=== PATIENT | male | born 1960 | race Caucasian/White ===

== ENCOUNTER 2017-03-31 21:06 | Emergency (ER) | payer OTHER ==
[~2017-03-31] VITALS: Ht 177.8 cm; Wt 89.4 kg
[2017-03-31 21:50] VITALS: BP 127/83
[2017-03-31] MEDS ORDERED: LIDOCAINE 1% / SOD BICARB 8.4% 20 ML VIAL. IJ ONE (22:15)
[2017-03-31] MEDS ORDERED: DOXY100C2 PO (23:10)
[2017-03-31] MEDS ORDERED: HYDR-971 PO (23:10)
--- NOTE | 2017-03-31 23:10 | PHYS DOC ---
Past Medical History Past Medical History: High Cholesterol, Other Additional Past Medical Histor: BPH Past Surgical History: No Surgical History Alcohol Use: None Drug Use: None Adult General Chief Complaint Chief Complaint: LACERATION/AVULSION [facility] HPI Patient is a 56 year old male presents to the emergency department stating that he was at work when he got his arm caught on one of the machines. He has an 15 cm laceration to his left forearm. Patient states his tetanus immunization is up-to-date. He has full range of motion of the wrist and the fingers. 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 No bleeding is currently noted from the site. Patient is [id number]. Review of Systems Review of Systems Constitutional: Denies fever or chills [] Eyes: Denies change in visual acuity, redness, or eye pain [] HENT: Denies nasal congestion or sore throat [] Respiratory: Denies cough or shortness of breath [] Cardiovascular: No additional information not addressed in HPI [] GI: Denies abdominal pain, nausea, vomiting, bloody stools or diarrhea [] : Denies dysuria or hematuria [] Musculoskeletal: Denies back pain or joint pain [] Integument: Denies rash or skin lesions laceration left forearm Neurologic: Denies headache, focal weakness or sensory changes [] Endocrine: Denies polyuria or polydipsia [] Current Medications Current Medications Current Medications Medications (Trade) Dose Ordered Sig/[facility] Start Time Stop Time Status Last Admin Dose Admin Lidocaine/Sodium Bicarbonate (Buffered Lidocaine 1%) 20 ml 1X ONCE 03/31/17 22:15 03/31/17 22:16 DC 03/31/17 22:40 20 ML Allergies Allergies Allergies Coded Allergies Type Severity Reaction Last Updated Verified No Known Drug Allergies 03/31/17 No Physical Exam Physical Exam Constitutional: Well developed, well nourished, no acute distress, non-toxic appearance. [] HENT: Normocephalic, atraumatic, bilateral external ears normal, oropharynx moist, no oral exudates, nose normal. [] Eyes: PERRLA, EOMI, conjunctiva normal, no discharge. [] Neck: Normal range of motion, no tenderness, supple, no stridor. [] Cardiovascular:Heart rate regular rhythm Lungs & Thorax: No respiratory distress noted Skin: Warm, dry, no erythema, no rash. 15 cm laceration noted to the left forearm. Tendon was identified with no rupture noted. Extremities: No tenderness, no cyanosis, no clubbing, ROM intact, no edema. Patient with equal strength noted bilaterally. 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 Patient with full range of motion of the left arm. Neurologic: Alert and oriented X 3, normal motor function, normal sensory function, no focal deficits noted. [] Psychologic: Affect normal, judgement normal, mood normal. [] Current Patient Data Vital Signs Vital Signs Date Time Temp Pulse Resp B/P (MAP) Pulse Ox O2 Delivery O2 Flow Rate FiO2 03/31/17 21:50 98.0 66 18 95 Room Air 98.0 EKG EKG [] Radiology/Procedures Radiology/Procedures [] Course & Med Decision Making Course & Med Decision Making Pertinent Labs and Imaging studies reviewed. (See chart for details) X-rays were negative for any bony abnormalities. Patient was provided with discharge instructions, treatment regimens and follow-up recommendations. Signs and symptoms to return back to emergency department has been provided. Patient was also encouraged to follow-up with work comp doctor. He was placed on antibiotics as well as pain medication upon discharge. Patient agrees with discharge instructions treatment regimens and follow-up recommendations. All concerns and questions have been answered at the patient's bedside. [] Dragon Disclaimer Dragon Disclaimer This electronic medical record was generated, in whole or in part, using a voice recognition dictation system. Departure Departure Impression: Primary Impression: Laceration Disposition: 01 HOME, SELF-CARE Condition: STABLE Referrals: UNKNOWN PCP NAME (PCP) Patient Instructions: Laceration Care, Adult, [id number] Additional Instructions: Activity as tolerated Ibuprofen for pain and discomfort [place] for severe pain do not take if you need to be alert and oriented Medication as prescribed Ice packs on 20 minutes and off 20 minutes several times a day Elevation as much as possible Keep the area clean and dry Clean the site with soap and water twice a day and apply antibiotic ointment to the area Watch for signs and symptoms of infection: redness, warmth, tenderness or any drainage or discharge noted from the site if you develop this followup immediately Otherwise followup with work comp in 01-11 for suture removal Scripts Doxycycline Hyclate (DOXYCYCLINE HYCLATE) 100 Mg Capsule 1 CAP PO BID, #20 CAP Prov: GABO SARMIENTO CHART SNATCHER 03/31/17 Hydrocodone/Apap 5-325 (NORCO 5-325 TABLET) 1 Each Tablet 1 TAB PO PRN Q6HRS Y for PAIN, #20 TAB 0 Refills Prov: GABO SARMIENTO APRN 03/31/17 Laceration/Wound Repair Laceration/Wound Repair : Wound Location: upper extremity Wound's Depth, Shape: into muscle Wound Length (cm): 15 Wound Explored: no foreign body removed Irrigated w/ Saline (ccs): 200 Betadine Prep?: Yes Anesthesia: 1% Lidocaine Volume Anesthetic (ccs): 15 Wound Debrided: minimal Wound Repaired With: sutures Suture Size/Type: 3:0, nylon Number of Sutures: 4 Layer Closure?: Yes Deep Layer Suture Size/Type: 3:0, dexon Number Deep Layer Sutures: 4 Progress Site was irrigated with 200 mL of normal saline. Lidocaine 1% buffered was injected into the area with approximately 50 mL. Inner layer was closed with 3- 0 Vicryl with 4 interrupted sutures placed. Outer area was stapled with 18 parker, 4 sutures that were interrupted of 3-0 Vicryl. Patient tolerated the procedure well. GABO SARMIENTO APRN Mar 31, 2017 23:10
--- NOTE | 2017-04-01 07:24 | RAD ---
EXAM: Left forearm 2 views. HISTORY: Laceration. COMPARISON: None. FINDINGS: Skin parker are seen along a soft tissue injury along the medial and dorsal aspect of the proximal forearm. There is a radiopaque foreign body along the proximal aspect of injury that measures 2.5 mL. A few additional tiny densities are scattered elsewhere in the laceration. No fractures are identified. The joint spaces and alignment of the wrist and elbow appear maintained. IMPRESSION: 1. Radiopaque foreign bodies within the laceration measure 2.5 mm as above.
== END 2017-03-31 23:43 | disposition home or self-care (01) ==
LOC: ER 21:06
DX: S51.812A Laceration without foreign body of left forearm, initial encounter (principal); E78.00 Pure hypercholesterolemia, unspecified; N40.0 Benign prostatic hyperplasia without lower urinary tract symptoms; W31.89XA Contact with other specified machinery, initial encounter; Y93.89 Activity, other specified; Y99.0 Civilian activity done for income or pay; Y92.69 Other specified industrial and construction area as the place of occurrence of the external cause
CPT/HCPCS: 12035; 73090; 99284-25